=== PATIENT | female | born 1940 | race Caucasian/White ===

== ENCOUNTER 2016-05-20 08:37 | Outpatient (CLI) | payer OTHER ==
[2013-02-12 09:58] VITALS: BP 132/79
[2016-05-20 09:27] LABS: eGFR (African) > 60; eGFR (Non-African) > 60
== END 2016-05-20 09:47 ==
LOC: LAB 08:37
PROVIDERS: ATTEND Family Medicine
DX: E78.2 Mixed hyperlipidemia (principal)
CPT/HCPCS: 36415; 80053; 80061

== ENCOUNTER 2017-01-12 11:10 | Outpatient (CLI) | payer OTHER ==
[2013-02-12 09:58] VITALS: BP 132/79
--- NOTE | 2017-01-12 18:40 | Diagnostic Imaging Report ---
KELVIN MARION [facility] [address] [facility] [address] [place], [place]. [address] Report Submission Date: Jan 12, 2017 11:45:14 AM CDT Patient Study Name: PORFIRIO PAZ Date: Jan 12, 2017 11:14:49 AM CDT Modality Type: CR Gender: F Description: CHEST : 44 Institution: [facility] Physician: KELVIN MARION Examination: PA and lateral chest. History: Evaluate lung ventura. Comparison exam: None provided Findings: PA lateral chest demonstrate a normal cardiac and mediastinal silhouette. Mild parenchymal haziness at the left lung base. No blunting of the costophrenic margins. Osseous structures are appropriate for age. Impression: Mild left lung/lingular infiltrate. No gross effusion. Electronically signed on Jan 12, 2017 11:45:14 AM CDT by: Christopher NICOLE
== END 2017-01-12 11:11 ==
LOC: RAD 11:10
PROVIDERS: ATTEND Family Medicine
DX: R05 Cough (principal)
CPT/HCPCS: 71020

== ENCOUNTER 2017-02-09 16:09 | Outpatient (CLI) | payer OTHER ==
[2013-02-12 09:58] VITALS: BP 132/79
--- NOTE | 2017-02-09 18:11 | Diagnostic Imaging Report ---
MATTHEW REAGAN (ESSIE) - ER [facility] [address] [facility].[address] [address] Report Submission Date: Feb 09, 2017 4:50:14 PM CDT Patient Study Name: PORFIRIO PAZ Date: Feb 09, 2017 4:38:17 PM CDT Modality Type: CR Gender: F Description: CHEST : 44 Institution: [facility] Physician: MATTHEW REAGAN (ESSIE) - ER Examination: PA and lateral chest. History: Evaluate lung ventura. Comparison exam: 12 January 2017 Findings: PA lateral chest demonstrate a normal cardiac silhouette. Tortuosity of the thoracic aorta. Continued parenchymal haziness involving the right anterior hilum and left lung base/lingular region. No blunting of the posterior sulci. Osseous structures are appropriate for age. Impression: Continued right hilum and left lung lingular infiltrate. Electronically signed on Feb 09, 2017 4:50:14 PM CDT by: Christopher NICOLE
== END 2017-02-09 16:10 ==
LOC: RAD 16:09
PROVIDERS: ATTEND Family Medicine
DX: R05 Cough (principal)
CPT/HCPCS: 71020

== ENCOUNTER 2017-02-11 08:37 | Outpatient (CLI) | payer OTHER ==
[2013-02-12 09:58] VITALS: BP 132/79
[2017-02-11 09:18] LABS: eGFR (African) > 60; eGFR (Non-African) > 60
--- NOTE | 2017-02-11 12:32 | Diagnostic Imaging Report ---
KELVIN MARION - CARRIE [facility] [address] [facility] [address] [place], [place]. [address] Report Submission Date: Feb 11, 2017 10:16:06 AM CDT Patient Study Name: PORFIRIO PAZ Date: Feb 11, 2017 9:32:01 AM CDT Modality Type: CT\SR Gender: F Description: CT CHEST W/ CONTRAST : 44 Institution: [facility] Physician: KELVIN MARION CT chest with contrast History: Prolonged infiltrate No similar comparison studies Emphysema Interstitial septal thickening is present, 4 mm nodule is noted in the right upper lobe Tree in bud infiltrates are seen in the anterior right middle lobe, patchy atelectasis is seen. Another 4 mm nodule is seen in the anterior right middle lobe. Tree in bud infiltrates also in the right lower lobe. No pleural effusion Minimal consolidation is seen in the lingual, a peripheral 5 mm nodule in left lower lobe with patchy infiltrates Thyroid gland is within normal limits. Small shotty mediastinal lymph nodes. Calcified subcarinal lymph nodes No pericardial effusion Partially visualized spleen, pancreas are within normal limits. Hepatic hypodense round lesions are likely cysts Hiatal hernia Thoracic spine degenerative changes are present Impression: 1. Emphysema. Small lung nodules are noted bilaterally with interstitial septal thickening, likely inflammatory in nature, largest measures 5 mm left lower lobe 2. Tree in bud infiltrates are noted in the right middle and lower lobes. Minimal right anterior middle lobe and lingular consolidation. No pleural effusion 3. Sequela of prior granulomatous disease. Further evaluation may be done to rule out active granulomatous disease eg sarcoid, tuberculousis. 4. Subsequent followup with high-resolution chest CT may be done. 5. Hiatal hernia. Electronically signed on Feb 11, 2017 10:16:06 AM CDT by: Aurora NICOLE
== END 2017-02-11 08:40 ==
LOC: RAD 08:37
PROVIDERS: ATTEND Family Medicine
DX: R91.8 Other nonspecific abnormal finding of lung field (principal)
CPT/HCPCS: 71260; 80048; Q9966

== ENCOUNTER 2017-02-15 12:36 | Outpatient (CLI) | payer OTHER ==
[2013-02-12 09:58] VITALS: BP 132/79
[2017-02-15] MEDS ORDERED: ALBUTEROL SULFATE 2.5 MG/3 ML AMPUL.NEB NEB ONE (12:48)
== END 2017-02-15 12:40 ==
LOC: RT 12:36
PROVIDERS: ATTEND Family Medicine
DX: R06.00 Dyspnea, unspecified (principal)
CPT/HCPCS: 94060

== ENCOUNTER 2017-02-18 12:29 | Outpatient (CLI) | payer OTHER ==
[2013-02-12 09:58] VITALS: BP 132/79
--- NOTE | 2017-02-24 09:31 | CONSULTATION REPORT ---
REFERRING PHYSICIAN: Dr. Mirta Dasilva CONSULTING PHYSICIAN: Sophie Newberry MD REASON FOR CONSULT: 1. Chronic cough. 2. recurrent pneumonia. SIGNIFICANT PROBLEM LIST: 1. Hyperlipidemia. 2. Facial zoster in March 2016. 3. Unspecified orthopedic procedure. HISTORY OF PRESENT ILLNESS: This is a 76-year-old female who notes that her cough began in the summer of 2016. It is a dry cough; however, her throat does "tickle." She has not had any fever, chills, or sweats. She notes that the cough does not occur at night. She has not been around anybody who has been ill. She has had no recent travel. She has had no exposure to tuberculosis. She is a current nonsmoker, although has ongoing exposure to second-hand smoke. She did quit tobacco use in 1987. She has seen her primary care physician who has prescribed a course of levofloxacin. The patient feels that the levofloxacin did not help her. She subsequently then took a course of Augmentin which she currently is completing and she feels that possibly the Augmentin might have helped her. She also notes that she has started Flonase and that this seems to be giving her some relief. She states that shortness of breath more with exertion started in November of 2016. She admits to postnasal drip symptoms. She does not have any GERD. She has never taken prednisone. She has not had hemoptysis. She denies chest pain. No PND. Her weight has been stable. Appetite good. She notes no edema but feels her energy level is slightly lower. MEDICATIONS: 1. Citalopram 40 mg daily. 2. Pravastatin 40 mg daily. 3. Montelukast 10 mg daily. 4. Ibuprofen 200 mg once or twice a day. 5. Equate 1 daily. 6. Melatonin 5 mg 1 daily. 7. Augmentin, dose unknown. 8. Flonase 2 sprays each nostril daily. ALLERGIES: No known allergies. SOCIAL HISTORY: Tobacco use, quit in 1987. She is and lives with her . FAMILY HISTORY: Mother with unspecified lung disease and unspecified rheumatoid disease. REVIEW OF SYSTEMS: Please see HPI for all pertinent review of systems. Please also see the [facility] intake form. PHYSICAL EXAMINATION: VITAL SIGNS: Height: 5 feet 6 inches. Weight: 174. BP: 118/68, P: 63, R: 20, T: 96.8, oxygen saturation is 91% on room air. GENERAL: This is a well-developed, well-nourished female in no acute distress speaking in full sentences. HEENT: Pupils are equal and reactive to light. Oropharynx with pink mucosa. Good oral hygiene. Oropharynx is clear. NECK: Supple. Trachea midline. No JVD. No lymphadenopathy. CHEST: Good expansion. Wheezing noted with coughing. Crackles at the bases bilaterally that did not clear with cough. CARDIAC: Rate and rhythm are regular. No murmur, rubs, or gallops. ABDOMEN: Soft and nontender. Positive bowel sounds. EXTREMITIES: No clubbing or cyanosis. Trace edema. NEUROLOGIC: Alert and oriented x3. Normal gait. Grossly nonfocal. IMAGING: All imaging independently reviewed by me personally. 1. Chest x-ray on 01-12-17: Flat diaphragm. Enlarged retrocardiac air space. Left lower lobe haziness. 2. Chest x-ray on 02-09-17: Essentially no changes from 01-12-17. 3. Chest CT scan on 02-11-17: Left-sided evidence of bronchiectasis, emphysema, subpleural small infiltrates versus fibrosis. LABORATORIES: Chemistries on 02-11-17: Sodium 139, potassium 4.3, chloride 103, carbon dioxide 27, BUN 13, glucose 81, calcium 9.4. ASSESSMENT AND PLAN: PROBLEM #1: Chronic cough. This cough has been occurring fairly continuously since the summer of 2016. It has been relatively unresponsive to 2 courses of antibiotics with some mild improvement noted with Flonase. The 3 most common causes of chronic cough are asthma, postnasal drip, and gastroesophageal reflux disease. I have instructed the patient on these 3. However, in her case, there are certain physical findings, notably the wheezing , also on the chest CT scan there is without question evidence of emphysema and on physical exam, there is also trace of pedal edema which widens the differential to bronchiectasis, along with emphysema, possibly early pulmonary fibrosis, and possibly early congestive heart failure. PLAN: 1. Place a PPD: Although recognizing she has no obvious TB risk factors. 2. Sputums. Patient states her cough is dry and will be unable to produce sputum; therefore, I have not ordered any. 3. High resolution chest CT specifically to evaluate the possibility of bronchiectasis and pulmonary fibrosis. 4. Pulmonary function testing: Patient states she has had them done just last week. Those results were unavailable to me. I will review them before her next clinic visit. 5. Echocardiogram to assess her LV and RV function. 6. Will add albuterol MDI as a rescue inhaler to see if this helps her cough at all. 7. Patient instructed to finish her course of Augmentin. 8. Patient instructed to continue her Flonase on a regular basis. PROBLEM #2: Mild hypoxemia. Of note, patient's oxygen saturation during this visit was 91% on room air. In evaluating her CT scan, I have noted she definitely has emphysema. PLAN: 1. Monitor oxygen saturation on next visit. 2. Do a 6-minute walk test on room air to assess for desaturation. 3. Review results of PFTs. PROBLEM #3: Possible obstructive sleep apnea. In her intake evaluation, she does note snoring. PLAN: We will pursue an evaluation of possible CATRACHITO at further appointments. PROBLEM #4: Preventive pulmonary medicine. Patient has received her flu shot and Pneumonia vaccine for this year. cc: Dr. Mirta NICOLE
== END 2017-02-18 12:35 ==
LOC: PULMONARY 12:29
PROVIDERS: ATTEND Internal Medicine Pulmonary Disease
DX: R09.02 Hypoxemia (principal)
CPT/HCPCS: 99213; G0463

== ENCOUNTER 2017-02-22 13:37 | Outpatient (CLI) | payer OTHER ==
[2013-02-12 09:58] VITALS: BP 132/79
== END 2017-02-22 13:40 ==
LOC: CARD 13:37
PROVIDERS: ATTEND Internal Medicine Cardiovascular Disease
DX: I48.91 Unspecified atrial fibrillation (principal)

== ENCOUNTER 2017-02-23 09:46 | Outpatient (CLI) | payer OTHER ==
[2013-02-12 09:58] VITALS: BP 132/79
--- NOTE | 2017-02-23 15:33 | Diagnostic Imaging Report ---
OSBALDO LAM [facility] [address] [facility] [address] [place], [place]. [address] Report Submission Date: Feb 23, 2017 1:03:17 PM CDT Patient Study Name: PORFIRIO PAZ Date: Feb 23, 2017 10:00:13 AM CDT Modality Type: CT\SR Gender: F Description: CT CHEST W/O CONTRAST : 44 Institution: [facility] Physician: OSBALDO LAM Examination: CT chest high-resolution History: Chronic cough. Comparison exams: 11 February 2017 Technique: CT chest without contrast high resolution protocol Findings: Scattered emphysematous changes bilaterally. Mild prominent bronchial wall thickening involving the perihilar regions bilaterally. Few basilar nodular densities approximately 2 to 3 mm diameter. Mild parenchymal scarring involving the left lung lingula and right middle lobe. No posterior effusion. Anterior mediastinum and stephan are without gross mass or pathologic adenopathy: though sensitivity is reduced on a noncontrast exam. Thoracic aorta without aneurysmal dilation or suspicious peripheral atherosclerotic the wall disease. Cardiac silhouette not enlarged. No pericardial effusion. Lower neck structures and upper abdominal organs are without gross abnormality. Osseous structures demonstrate degenerative changes. Small hiatal hernia. Impression: Emphysematous changes. Bronchiectatic changes. Lung base parenchymal scarring. No effusion. Presumed basilar and subcentimeter finflammatory nodules - following as warranted. Electronically signed on Feb 23, 2017 1:03:17 PM CDT by: Christopher NICOLE
== END 2017-02-23 09:47 ==
LOC: RAD 09:46
PROVIDERS: ATTEND Internal Medicine Pulmonary Disease
DX: R05 Cough (principal)
CPT/HCPCS: 71250

== ENCOUNTER 2017-03-04 12:28 | Outpatient (CLI) | payer OTHER ==
[2013-02-12 09:58] VITALS: BP 132/79
--- NOTE | 2017-03-09 13:03 | OP Clinic Progress Note ---
PRIMARY CARE PHYSICIAN: Dr. Mirta Dasilva CHIEF COMPLAINT: "I am here for follow up and my cough is much better." SIGNIFICANT PROBLEM LIST: 1. Chronic obstructive pulmonary disease (COPD): Gold Class 2. 2. Hyperlipidemia. 3. Facial zoster in March 2016. 4. Unspecified orthopedic procedure. 5. Mild bronchiectasis: Documented by high-resolution CT scan on 02-23-17. HISTORY OF PRESENT ILLNESS: This 76-year-old female returns to the Pulmonary Clinic. She was last seen 2 weeks previously complaining of a chronic cough. Today, she states that her cough is much, much improved. She has completed 2 cycles of antibiotics and has continued to use her nasal fluticasone spray. On the last visit, I did prescribed an albuterol inhaler to be used p.r.n. with her coughing; and she does state she has used it occasionally. She is unsure if anything in particular has helped her cough. ALLERGIES: No known allergies. MEDICATIONS: 1. Citalopram 40 mg daily. 2. Pravastatin 40 mg daily. 3. Montelukast 10 mg daily. 4. Ibuprofen 200 mg once or twice a day. 5. Equate 1 daily. 6. Melatonin 5 mg daily. 7. Flonase 2 sprays each nostril daily. 8. Albuterol MDI p.r.n. PHYSICAL EXAMINATION: VITAL SIGNS: BP: 132/69, P: 82, R: 20, T: 96.3. Room air oxygen saturation is 93%. BMI is 28.1. GENERAL: This is a well-developed, well-nourished female in no acute distress speaking in full sentences and not coughing. HEENT: Pupils are equal and reactive to light. Oropharynx is clear. No thrush. NECK: Supple. No adenopathy. LUNGS: Equal bilateral excursion. Minimal crackles at the right base. CARDIAC: Rate and rhythm are regular. No murmur, rubs, or gallops. ABDOMEN: Soft and nontender. EXTREMITIES: Trace edema. IMAGING: Imaging was independently reviewed by me personally. 1. High-resolution CT scan on 02-23-17: Clear cut emphysema. Mild bronchial wall thickening. Mild bronchiectasis. Small subcentimeter subpleural nodules, right greater than left. 2. Echocardiogram on 02-22-17: Ejection fraction (EF) of 60%. Mild AR. 3. PFT on 02-15-17: FVC was 1.87 liters, 65% of predicted; FEV1 was 1.08 liters, 51% of predicted; FEV1/FVC was 0.58. The waveforms are good and consistent with obstructive lung disease. She falls into Gold Class 2: Moderate COPD. ASSESSMENT AND PLAN: PROBLEM #1: Chronic cough. This problem has resolved. Likely might have been a combination of factors. An infectious component with her mild bronchiectasis that responded to 2 cycles of antibiotics and also a component of postnasal drip that had responded to Flonase. PLAN: Continue Flonase as directed. PROBLEM #2: Chronic obstructive pulmonary disease (COPD), Gold Class 2: Moderate. The patient definitely has emphysema evidenced both by her chest CT scan and by the spirometry that was obtained. She falls into Gold Class 2: Moderate COPD. PLAN: 1. I advised patient on Advair on Symbicort. She is very concerned about the cost of inhalers. She will explore her insurance company and let me know which one she could afford or if there is something else on her formulary that I can substitute. 2. Continue albuterol MDI p.r.n. shortness of breath or cough. PROBLEM #3: Mild hypoxemia which was noted on her first visit at 91% room air oxygen saturation. This time her oxygen saturation on room air was 93%. I discussed this with the patient. PLAN: 1. We will monitor her oxygen saturation on the next visit. 2. Return to clinic in 3 months. cc: Dr. Mirta NICOLE
== END 2017-03-04 12:30 ==
LOC: PULMONARY 12:28
PROVIDERS: ATTEND Internal Medicine Pulmonary Disease
DX: J44.9 Chronic obstructive pulmonary disease, unspecified (principal); R09.02 Hypoxemia
CPT/HCPCS: 99213; G0463

== ENCOUNTER 2017-07-01 13:10 | Outpatient (CLI) | payer OTHER ==
[2013-02-12 09:58] VITALS: BP 132/79
--- NOTE | 2017-07-12 09:48 | OP Clinic Progress Note ---
PRIMARY CARE PHYSICIAN: Dr. Mirta Dasilva CHIEF COMPLAINT: "Follow up on my COPD." SIGNIFICANT PROBLEM LIST: 1. Chronic obstructive pulmonary disease: GOLD Class 2. 2. Postnasal drip/sinus congestion. 3. Hyperlipidemia. 4. Facial zoster in March 2016. 5. Unspecified orthopedic procedure. 6. Mild bronchiectasis: Documented by high resolution CT scan on February 23, 2017. HISTORY OF PRESENT ILLNESS: This is a 77-year-old female who returns for follow up to discuss her COPD and sinus congestion. She states that she had decided to use the inhaler Symbicort and this was prescribed by Dr. Dasilva on March 28, 2017. However, Symbicort left a very unacceptable poor taste in patient's mouth, so she is no longer using it. She does use albuterol when needed p.r.n., although she does not need to use it often. She still occasionally has a cough with her main complaint of sinus congestion and postnasal drip. She is on Flonase and states that does give her some relief. ALLERGIES: No known allergies. MEDICATIONS: 1. Citalopram 40 mg daily. 2. Pravastatin 40 mg daily. 3. Montelukast 10 mg daily. 4. Ibuprofen 200 mg p.r.n. 5. Multivitamin 1 tablet daily. 6. Melatonin 5 mg at bedtime. 7. Flonase 2 sprays each nostril daily. 8. Albuterol 2 puffs every 3 to 4 hours p.r.n. PHYSICAL EXAMINATION: VITAL SIGNS: BP: 126/68, P: 73, R: 20, T: 96.8, oxygen saturation is 92% on room air. BMI is 27.9. GENERAL: This is a well-developed, well-nourished female in no acute distress speaking in full sentences. HEENT: Pupils are equal and reactive to light. Oropharynx is clear. No thrush. NECK: Supple. No JVD. No adenopathy. LUNGS: Equal bilateral air excursion. Bilateral light wheezing. No crackles or rhonchi. CARDIAC: Rate and rhythm are regular. No murmur, rubs, or gallops. ABDOMEN: Soft and nontender. No organomegaly. EXTREMITIES: No edema. IMAGING: Imaging was independently reviewed by me personally. 1. High-resolution CT scan on February 23, 2017: Emphysema. Mild bronchial wall thickening. Mild bronchiectasis. Small subcentimeter subpleural nodules, right greater than left. ASSESSMENT AND PLAN: PROBLEM #1: Chronic obstructive pulmonary disease (COPD), GOLD Class 2: Moderate. Patient definitely does not like the taste of Symbicort and will not use it. I have explained to her the role of a long-acting anti-cholinergic inhaler. PLAN: 1. Patient will consider a long-acting anti-cholinergic inhaler. 2. Continue albuterol every 3 to 4 hours p.r.n. shortness of breath or wheeze. PROBLEM #2: Sinus congestion/postnasal drip. Patient feels that the Flonase is helping her but is still bothered by the symptoms of postnasal drip and sinus congestion. PLAN: 1. Continue Flonase 2 sprays each naris daily. 2. Consider the use of [id number] non-sedating antihistamines (I have given the patient a list of Ilana, Claritin, and Zyrtec). 3. Ipratropium nasal spray 0.06%, two sprays each nostril 2 to 3 times per day, p.r.n. postnasal drip. PROBLEM #3: Abnormal chest CT scan. Patient does have small subpleural nodules, right greater than left, most likely inflammatory, but she does have a smoking history. PLAN: 1. Repeat chest CT in September without contrast to assess these small nodules. 2. Patient to return to clinic after her chest CT scan. cc: Dr. Mirta NICOLE
== END 2017-07-01 13:30 ==
LOC: PULMONARY 13:10
PROVIDERS: ATTEND Internal Medicine Pulmonary Disease
DX: J44.9 Chronic obstructive pulmonary disease, unspecified (principal); R09.81 Nasal congestion; E78.5 Hyperlipidemia, unspecified; J47.9 Bronchiectasis, uncomplicated; R91.8 Other nonspecific abnormal finding of lung field
CPT/HCPCS: 99214; G0463

== ENCOUNTER 2017-10-05 12:48 | Outpatient (CLI) | payer OTHER ==
[2013-02-12 09:58] VITALS: BP 132/79
--- NOTE | 2017-10-05 17:45 | Diagnostic Imaging Report ---
OSBALDO LAM [facility] [address] [facility] [address] [place], [place]. [address] Report Submission Date: Oct 05, 2017 4:52:38 PM CDT Patient Study Name: PORFIRIO PAZ Date: Oct 05, 2017 1:10:00 PM CDT Modality Type: CT\SR Gender: F Description: CT CHEST W/O CONTRAST : 44 Institution: [facility] Physician: OSBALDO LAM CT chest without contrast History: Followup pulmonary nodules Technique: Helically acquired images were obtained through the chest without IV contrast and comparison made with prior CT examinations from January and February 2017. Findings: There is unchanged background of emphysema. There are numerous bone tiny, unchanged 1 to 2 mm subpleural nodules scattered throughout much of the left upper and left lower lobe. Within the lingula, there is an unchanged more prominent 9 mm nodular focus. There is a small region of lingular atelectasis as well. There has been no change with regard to previously noted right upper lobe nodules. The largest nodules are inferiorly at the anterior right upper lobe with the largest of these measuring 8.5 mm. However, when directly compared with the January 2017 CT, these nodules are stable. Multiple very tiny/miliary peripheral nodules remain throughout much of the mid and lower right lung. No new findings are noted at the upper abdomen. Small, unchanged mediastinal nodes are present. There is no pericardial or pleural effusion. Aside from mild degenerative findings of the thoracic and upper lumbar spine, no additional osseous abnormalities are noted. There is a small hiatal hernia. Impression: Emphysema. No change in appearance of bilateral lung nodules compared to January 2017. No change in appearance of small mediastinal nodes are there are. In the setting of multiple lung nodules, some of which measure up to 8.5 and 9 mm, an additional followup chest CT in 18 to 24 months time would be recommended per 2017 Fleischner criterion. Electronically signed on Oct 05, 2017 4:52:38 PM CDT by: Madelaine NICOLE
== END 2017-10-05 12:50 ==
LOC: RAD 12:48
PROVIDERS: ATTEND Internal Medicine Pulmonary Disease
DX: J44.9 Chronic obstructive pulmonary disease, unspecified (principal); R09.82 Postnasal drip
CPT/HCPCS: 71250

== ENCOUNTER 2017-11-04 12:42 | Outpatient (CLI) | payer OTHER ==
[2013-02-12 09:58] VITALS: BP 132/79
--- NOTE | 2017-11-15 10:13 | OP Clinic Progress Note ---
PRIMARY CARE PROVIDER: Dr. Mirta Dasilva CHIEF COMPLAINT: "I am here to follow up on my chest CT scan and COPD." SIGNIFICANT PROBLEM LIST: 1. Chronic obstructive pulmonary disease: Gold Class 2. 2. Chest CT with multiple pulmonary nodules. 3. Hyperlipidemia. 4. Postnasal drip/sinus congestion. 5. Facial zoster in March 2016. 6. Mild bronchiectasis: Documented by high-resolution CT scan on February 23, 2017. 7. Unspecified orthopedic procedure. HISTORY OF PRESENT ILLNESS: This is a 77-year-old female who returns to clinic for follow up. She states overall that she is feeling well. She denies shortness of breath. She states that her appetite is good. Her weight is stable. She has a good energy level. She uses albuterol MDI in the a.m. but is not sure if it helps her, but she does use Flonase regularly and states that does help her postnasal drip and sinus congestion. ALLERGIES: No known allergies. PRESENT MEDICATIONS: 1. Citalopram 40 mg daily. 2. Pravastatin 40 mg daily. 3. Montelukast 10 mg daily. 4. Ibuprofen 200 mg p.r.n. 5. Multivitamin 1 tablet daily. 6. Melatonin 5 mg at bedtime. 7. Flonase 2 sprays each nostril daily. 8. Albuterol 2 puffs every 3 to 4 hours p.r.n shortness of breath. PHYSICAL EXAMINATION: VITAL SIGNS: BP: 121/73, P: 63, R: 20, T: 96.9, oxygen saturation on room air is 94%. Weight: 174 pounds. General: This is a well-developed, well-nourished female speaking in full sentences. She is in no acute distress. HEENT: Pupils are equal and reactive to light. NECK: Supple. No lymphadenopathy. LUNGS: Good bilateral air excursion. Clear. No rales or rhonchi. CARDIAC: Rate and rhythm are regular. No murmur, rubs, or gallops. ABDOMEN: Soft and nontender. EXTREMITIES: No edema. NEUROLOGIC: Alert and oriented x3. Grossly nonfocal neurologic exam. IMAGING: All imaging independently reviewed by me personally. 1. Chest CT on October 05, 2017. Diffuse emphysema. Multiple pulmonary nodules without change. ASSESSMENT AND PLAN: PROBLEM #1: Moderate chronic obstructive pulmonary disease (COPD): Gold Class 2. Patient states that she is doing well from a COPD standpoint. She denies shortness of breath or cough and she is using her albuterol MDI in the morning. PLAN: 1. Continue albuterol MDI every 3 to 4 hours p.r.n. shortness of breath: I have explained to the patient that this is a rescue inhaler and can be used more often if she needs it. 2. She can consider a long-acting anticholinergic inhaler if patient needs it. PROBLEM #2: Abnormal CT scan. Patient does have multiple small subpleural nodules, right greater than left. They have been without change since her CT scan done originally in February 2017 , but the patient does have a significant smoking history. PLAN: Repeat chest CT in April 2018. PROBLEM #3: Sinus congestion/postnasal drip. Overall, patient states she is doing well and she continues to use her Flonase. PLAN: 1. Continue Flonase nasal spray. 2. Ipratropium nasal spray p.r.n. 3. Consider the use of [id number] nonsedating antihistamines. 4. Patient to return to clinic after her chest CT scan is completed. cc: Dr. Mirta NICOLE
== END 2017-11-04 12:47 ==
LOC: PULMONARY 12:42
PROVIDERS: ATTEND Internal Medicine Pulmonary Disease
DX: J44.9 Chronic obstructive pulmonary disease, unspecified (principal); R93.8 Abnormal findings on diagnostic imaging of other specified body structures; R09.81 Nasal congestion
CPT/HCPCS: 99214; G0463

== ENCOUNTER 2018-01-10 10:58 | Outpatient (CLI) | payer OTHER ==
[2013-02-12 09:58] VITALS: BP 132/79
[2018-01-10 11:42] LABS: eGFR (Non-African) > 60
== END 2018-01-10 11:00 ==
LOC: LAB 10:58
PROVIDERS: ATTEND Family Medicine
DX: E78.2 Mixed hyperlipidemia (principal)
CPT/HCPCS: 36415; 80053; 80061

== ENCOUNTER 2018-02-02 13:56 | Outpatient (CLI) | payer OTHER ==
[2013-02-12 09:58] VITALS: BP 132/79
[2018-02-02 14:59] LABS: eGFR (Non-African) > 60
[2018-02-02 16:18] LABS: BASOPHILS % 0.3 (0.0-1.5); EOSINOPHILS % 4.3 % (0.0-6.8); MEAN CORPUSCULAR HEMOGLOBIN 30.6 pg (28.0-34.0); MONOCYTES % 7.8 % (0.0-11.0); NEUTROPHILS # 3.8 # k/uL (1.4-7.7)
== END 2018-02-02 13:57 ==
LOC: LAB 13:56
PROVIDERS: ATTEND Family Medicine
DX: R10.13 Epigastric pain (principal)
CPT/HCPCS: 36415; 80053; 85025

== ENCOUNTER 2018-08-02 14:28 | Outpatient (CLI) | payer OTHER ==
[2013-02-12 09:58] VITALS: BP 132/79
--- NOTE | 2018-08-02 14:58 | Diagnostic Imaging Report ---
KELVIN MARION [facility] [address] [facility] [address] [place], [place]. [address] Report Submission Date: Aug 02, 2018 2:55:19 PM CDT Patient Study Name: PORFIRIO PAZ Date: Aug 02, 2018 2:35:59 PM CDT Modality Type: DX Gender: F Description: BILAT HIPS 2V (W/PEL IF DONE) : 44 Institution: [facility] Physician: KELVIN MARION EXAMINATION: BILAT HIPS 2V (W/PEL IF DONE) HISTORY: BILAT HIP PAIN FOR SEVERAL YEARS; GETTING WORSE ESPECIALLY AT NIGHT COMPARISON: None FINDINGS: No acute fracture is identified. The femoral heads appear well-seated within their respective acetabula. There is mild hip degenerative change bilaterally. The pubic symphysis is intact. The sacroiliac joints appear normal. IMPRESSION: Mild bilateral hip degenerative change. Electronically signed on Aug 02, 2018 2:55:19 PM CDT by: Germain NICOLE
== END 2018-08-02 14:45 ==
LOC: RAD 14:28
PROVIDERS: ATTEND Family Medicine
DX: M16.0 Bilateral primary osteoarthritis of hip (principal); M25.551 Pain in right hip; M25.552 Pain in left hip
CPT/HCPCS: 73521

== ENCOUNTER 2018-08-15 15:20 | Outpatient (CLI) | payer OTHER ==
[2013-02-12 09:58] VITALS: BP 132/79
[2018-08-15 15:43] LABS: MEAN CORPUSCULAR HEMOGLOBIN 31.2 pg (28.0-34.0)
[2018-08-15 15:44] LABS: BASOPHILS % 1.8 % (0.0-1.5); MONOCYTES % 7.4 % (0.0-11.0); NEUTROPHILS # 5.3 # k/uL (1.4-7.7)
--- NOTE | 2018-08-15 15:46 | Diagnostic Imaging Report ---
KELVIN MARION [facility] [id number] [facility] [address] [address] Report Submission Date: Aug 15, 2018 3:42:07 PM CDT Patient Study Name: PORFIRIO PAZ Date: Aug 15, 2018 3:19:21 PM CDT Modality Type: DX Gender: F Description: TIBIA FIBULA 2 VIEW : 44 Institution: [facility] Physician: KELVIN MARION EXAMINATION: TIBIA FIBULA 2 VIEW HISTORY: RIGHT LEG PAIN X 2-3 WEEKS. NKI (Hx) COMPARISON: None FINDINGS: No acute fracture is identified. Soft tissue edema is present. IMPRESSION: No acute fracture identified. Electronically signed on Aug 15, 2018 3:42:07 PM CDT by: Germain NICOLE
== END 2018-08-15 15:22 ==
LOC: LAB 15:20
PROVIDERS: ATTEND Family Medicine
DX: M79.604 Pain in right leg (principal)
CPT/HCPCS: 36415; 73590; 85025

== ENCOUNTER 2019-02-21 09:07 | Outpatient (CLI) | payer OTHER ==
[2013-02-12 09:58] VITALS: BP 132/79
[2019-02-21 09:56] LABS: HDL 59 mg/dL (>40); eGFR (Non-African) > 60
== END 2019-02-21 09:12 ==
LOC: LAB 09:07
PROVIDERS: ATTEND Family Medicine
DX: E78.2 Mixed hyperlipidemia (principal)
CPT/HCPCS: 36415; 80053; 80061